=== PATIENT | female | born 1990 | race Caucasian/White ===

== ENCOUNTER 2018-11-03 20:18 | Emergency (ER) | payer OTHER ==
[2018-11-03 20:29] VITALS: TEMP 98.1; BMI 18.3
--- NOTE | 2018-11-03 20:52 | PDOC ---
Attending Attestation - Resident Resident Name: Mak Sommer - ED Attending Attestation I have performed the following: I have examined & evaluated the patient, The case was reviewed & discussed with the resident, I agree w/resident's findings & plan, Exceptions are as noted - HPI HPI: 11/03/18 20:51 this 27 yo female went to urgent care for chest pain and referred to the emergency dept.She dev anterior chest pain at 2 pm today 11/03/18 20:53 slender 27 yo female is seated on the gurney and has normal vital signs 11/03/18 21:02 - Physicial Exam PE: 11/04/18 00:[address] Cindy Perdue's physical exam 11/04/18 00:15 11/04/18 00:16 - Medical Decision Making 11/03/18 21:03 27-year-old female presents with chest pressure that started 2 PM today. She describes the pain as mid chest, nonradiating and not associated with any nausea or vomiting or diaphoresis and she states the pain is 7/10 -she denies any recent travel PMH migraines PSH none LMP 3 months ago,she has irregular menstrual cycles Social history: denies tobacco use Meds denies any prescription meds, no control family history: no history of early cardiac demise ekg nsr @ 63 bpm 11/03/18 23:32 her labs are unremarkable and her troponin is negative 11/04/18 00:14 cxr napd,normal cardiac silhouette pt's chest resolved imp atypical chest pain
[2018-11-03 21:01] VITALS: BP 113/78; PULSE 67
--- NOTE | 2018-11-03 21:05 | PDOC ---
History of Present Illness <JakeMonica Lita - Last Filed: 11/04/18 00:11> - History of Present Illness Initial Comments: 11/03/18 21:05 27 y/o F hx of migraines and depression presenting today with 7 hrs of chest pain. Pain started at around 2pm this afternoon while she was at home at rest. Pain is located sternally, waxes and wanes and is about 7/10 in severity. It is non-radiating and she denies any relieving or exacerbating factors. She went to urgent care where an dEKG was done and she was asked to come to Ed for further evaluation. Urgent care EKG showed " high lateral repolarization differences but no ST elevations". She took some aspirin at home prior to urgent care visit which did not relieve her pain. She denies any OCP use, hx of clots, recent travel, family hx of sudden cardiac , shortness of breath, diaphoresis, nausea, vomiting, fevers, chills, recent increase in strenous activity or heavy lifting. 11/03/18 21:12 <Mak Sommer - Last Filed: 11/04/18 00:29> - General Chief Complaint: Chest Pain Stated Complaint: CHEST PAIN Time Seen by Provider: 11/03/18 20:38 Past History <JakeMonica Lita - Last Filed: 11/04/18 00:11> - Past Medical History COPD: No - Immunization History Immunization Up to Date: Yes - Suicide/Smoking/Psychosocial Hx Smoking History: Never smoked Have you smoked in the past 12 months: No Hx Alcohol Use: No Drug/Substance Use Hx: No Substance Use Type: None <Mak Sommer - Last Filed: 11/04/18 00:29> - Past Medical History Allergies/Adverse Reactions: Allergies Allergy/AdvReac Type Severity Reaction Status Date / Time shellfish derived Allergy Mild Verified 11/03/18 20:26 Home Medications: Ambulatory Orders NK [No Known Home Medication] 11/03/18 Review of Systems - Review of Systems Constitutional: No: Chills, Fever HEENTM: No: Blurred Vision Respiratory: Yes: Cough (dry cough, non-productive) Cardiac (ROS): Yes: Symptoms Reported ABD/GI: No: Abdominal Distended, Diarrhea : No: Burning, Dysuria Musculoskeletal: No: Back Pain Integumentary: No: Bruising, Change in Color Neurological: No: Headache, Numbness <Mak Sommer - Last Filed: 11/04/18 00:29> *Physical Exam - Vital Signs Last Vital Signs Temp Pulse Resp BP Pulse Ox 98.1 F 67 16 113/78 100 11/03/18 20:26 11/03/18 20:56 11/03/18 20:56 11/03/18 20:56 11/03/18 20:56 <Monica Joseph - Last Filed: 11/04/18 00:11> - Vital Signs Last Vital Signs Temp Pulse Resp BP Pulse Ox 98.1 F 63 18 122/82 100 11/03/18 20:26 11/03/18 20:26 11/03/18 20:26 11/03/18 20:26 11/03/18 20:26 - Physical Exam General Appearance: Yes: Appropriately Dressed, Thin. No: Apparent Distress HEENT: positive: Normal Voice. negative: Scleral Icterus (R), Scleral Icterus ( L) Neck: positive: Trachea midline, Supple Respiratory/Chest: positive: Chest Tender (tenderness with palpation of chest at sternum), Lungs Clear, Normal Breath Sounds. negative: Respiratory Distress , Accessory Muscle Use, Labored Respiration Cardiovascular: positive: Regular Rhythm, Regular Rate, S1, S2. negative: Edema , JVD Vascular Pulses: Dorsalis-Pedis (R): 2+, Doralis-Pedis (L): 2+ Gastrointestinal/Abdominal: positive: Normal Bowel Sounds, Flat, Soft. negative : Tender, Pulsatile Mass Musculoskeletal: positive: Normal Inspection. negative: CVA Tenderness Extremity: positive: Normal Capillary Refill, Normal Inspection, Normal Range of Motion. negative: Pedal Edema Integumentary: positive: Normal Color, Dry, Warm Neurologic: positive: Fully Oriented, Alert, Normal Mood/Affect, Normal Response <Mak Sommer - Last Filed: 11/04/18 00:29> ED Treatment Course - LABORATORY CBC & Chemistry Diagram: 11/03/18 21:30 11/03/18 21:30 - ADDITIONAL ORDERS Additional order review: Laboratory Results 11/03/18 11/03/18 11/03/18 21:30 21:30 21:30 Sodium Cancelled 140 Potassium Cancelled 3.8 Chloride Cancelled 104 Carbon Dioxide Cancelled 28 Anion Gap Cancelled 8 BUN Cancelled 13.3 Creatinine Cancelled 0.7 Est GFR (CKD-EPI)AfAm Cancelled 139.57 Est GFR (CKD-EPI)NonAf Cancelled 120.42 Random Glucose Cancelled 79 Calcium Cancelled 9.1 Total Bilirubin Cancelled 0.2 AST Cancelled 10 L ALT Cancelled 14 Alkaline Phosphatase Cancelled 47 Creatine Kinase 46 Troponin I < 0.02 Total Protein Cancelled 6.8 Albumin Cancelled 4.0 Serum , Qual Negative 11/03/18 21:30 RBC 4.52 MCV 79.8 L MCHC 33.4 RDW 15.4 MPV 9.5 Neutrophils % 46.7 Lymphocytes % 43.7 H Monocytes % 7.6 Eosinophils % 1.3 Basophils % 0.7 <Monica Joseph - Last Filed: 11/04/18 00:11> - LABORATORY CBC & Chemistry Diagram: 11/03/18 21:30 11/03/18 21:30 <Mak Sommer - Last Filed: 11/04/18 00:29> Medical Decision Making - Medical Decision Making 11/03/18 21:13 27 y/o F hx of migraines and depression presenting today with 7 hrs of chest pain. cbc, cmp, cardiac profile, ekg, serum cxr pending serum results 11/03/18 22:48 EKG: normal sinus rhythm, normal EKG Trop <0.02 Serum negative CXR PA & Lateral ordered CXR : clear 11/04/18 00:28 <Mak Sommer - Last Filed: 11/04/18 00:29> *DC/Admit/Observation/Transfer <Monica Joseph - Last Filed: 11/04/18 00:11> <Mak Sommer - Last Filed: 11/04/18 00:29> Diagnosis at time of Disposition: Chest pain Qualifiers: Chest pain type: unspecified Qualified Code(s): R07.9 - Chest pain, unspecified - Discharge Dispostion Disposition: HOME Condition at time of disposition: Stable - Referrals Referrals: [facility] [place] [facility] [place] [Provider Group] - Patient Instructions Printed Discharge Instructions: DI for Atypical Chest Pain Additional Instructions: You were seen in the ED for chest pain. Your labs and other testing did not show signs of a heart attack HOME CARE INSTRUCTIONS: For the next few days, avoid physical activities that bring on chest pain. . Do not smoke and avoid drinking alcohol. Only take over- the-counter or prescription medicine for pain such as motrin or tylenol. We have provided a list of primary care doctors you can contact for follow up. Follow up with them next week. SEEK MEDICAL CARE IF: You think you are having problems from the medicine you are taking. Read your medicine instructions carefully. You develop chest pain does not go away, even after treatment. SEEK IMMEDIATE MEDICAL CARE IF: You have increased chest pain or pain that spreads to your arm, neck, jaw, back, or abdomen. You develop shortness of breath, an increasing cough, or you start coughing up blood. You have severe back or abdominal pain, feel nauseous, or vomit You develop severe weakness, fainting, or chills. You have a fever. THESE ARE EMERGENCIES - Do not drive yourself to the hospital.
[2018-11-03 22:10] LABS: BASO % 0.7 % (0-2.0); EOS % 1.3 % (0-4.5); HEMATOCRIT 36.1 % (32.4-45.2); LYMPH % 43.7 % (8-40); MCH 26.7 pg (25.7-33.7); MCHC 33.4 g/dl (32.0-36.0); MEAN CELL VOLUME 79.8 fl (80-96); MEAN PLT VOLUME 9.5 fl (7.5-11.1); MONO % 7.6 % (3.8-10.2); NEUT % 46.7 % (42.8-82.8); PLATELET COUNT 208 K/MM3 (134-434); RBC 4.52 M/mm3 (3.60-5.2); RDW 15.4 % (11.6-15.6); WHITE BLOOD COUNT 6.8 K/mm3 (4.0-10.0)
[2018-11-03 23:09] LABS: ALK PHOS 47 U/L (45-117); ANION GAP 8 MMOL/L (8-16); BILIRUBIN,TOTAL 0.2 mg/dL (0.2-1); BLOOD UREA NITROGEN 13.3 mg/dL (7-18); CALCIUM 9.1 mg/dL (8.5-10.1); CHLORIDE 104 mmol/L (98-107); CO2 28 mmol/L (21-32); CREATININE 0.7 mg/dL (0.55-1.3); GLUCOSE,RANDOM 79 mg/dL (74-106); POTASSIUM 3.8 mmol/L (3.5-5.1); SGOT/AST 10 U/L (15-37); SGPT/ALT 14 U/L (13-61); SODIUM 140 mmol/L (136-145); TOT PROT 6.8 g/dl (6.4-8.2)
--- NOTE | 2018-11-05 07:11 | EKG ---
Test Reason : Blood Pressure : / mmHG Vent. Rate : 061 BPM Atrial Rate : 061 BPM P-R Int : 136 ms QRS Dur : 088 ms QT Int : 422 ms P-R-T Axes : 044 079 058 degrees QTc Int : 424 ms NORMAL SINUS RHYTHM NORMAL ECG WHEN COMPARED WITH ECG OF 03-NOV-2018 20:23, NO SIGNIFICANT CHANGE WAS FOUND Confirmed by TAMMY FERREIRA MD ([id number]) on 11/05/2018 7:11:15 AM Referred By: Confirmed By:TAMMY FERREIRA MD
--- NOTE | 2018-11-05 07:12 | EKG ---
Test Reason : Blood Pressure : / mmHG Vent. Rate : 063 BPM Atrial Rate : 063 BPM P-R Int : 130 ms QRS Dur : 088 ms QT Int : 402 ms P-R-T Axes : 043 079 066 degrees QTc Int : 411 ms NORMAL SINUS RHYTHM WITH SINUS ARRHYTHMIA NORMAL ECG WHEN COMPARED WITH ECG OF 22-MAY-2013 18:03, NO SIGNIFICANT CHANGE WAS FOUND Confirmed by TAMMY FERREIRA MD ([id number]) on 11/05/2018 7:11:33 AM Referred By: Confirmed By:TAMMY FERREIRA MD
== END 2018-11-04 00:28 | disposition home or self-care (01) ==
LOC: JER 20:18
DX: R07.89 Other chest pain (principal); G43.909 Migraine, unspecified, not intractable, without status migrainosus; F32.9 Major depressive disorder, single episode, unspecified
CPT/HCPCS: 36415; 71046-TC-FY; 80053; 82550; 84484; 84703; 85025; 93005; 93010; 99284-25

== ENCOUNTER 2019-09-15 13:51 | Emergency (ER) | payer OTHER ==
--- NOTE | 2019-09-15 13:54 | PDOC ---
Rapid Medical Evaluation Time Seen by Provider: 09/15/19 13:52 Medical Evaluation: Allergies Allergy/AdvReac Type Severity Reaction Status Date / Time shellfish derived Allergy Mild Verified 11/03/18 20:26 09/15/19 13:52 I have performed a brief in-person evaluation of this patient. CC: syncope after shower with subsequent head trauma. Seen at and found to have BGM-30. PE: No focal findings. Orders: labs, ekg, urine, CT Patient will proceed to ED for further evaluation. Discharge Disposition - Diagnosis Syncope - Referrals - Patient Instructions - Post Discharge Activity
[2019-09-15 14:15] VITALS: TEMP 98.2; BMI 21.4
--- NOTE | 2019-09-15 14:15 | PDOC ---
History of Present Illness - General Chief Complaint: Lightheaded Stated Complaint: DIZZINESS Time Seen by Provider: 09/15/19 13:52 History Source: Patient, Old Records Exam Limitations: No Limitations - History of Present Illness Initial Comments: 09/15/19 14:15 Gabrielle Owens is an otherwise healthy 28F presenting with syncope and hypoglycemia. Patient was otherwise healthy today, took a hot shower 4 hours RAIL BONDER and felt dizzy after, sat on toilet, called for help, then syncopized to the floor. Boyfriend at bedside, found her on the floor, was glassy eyed for about a minute but was back to normal 5 minutes later. Went to Urgent Care, BGM 30, referred to [facility] ED for further care. Per boyfriend patient was back to normal mental status at this time. Patient denies prior syncope, denies FH cardiac disease, denies chest pain, palpitations, SOB, dizziness, weakness, numbness, abd pain, urinary sx, diarrhea, fever, chills. Currently complains of some mild neck soreness to her right neck, no nausea, no vomiting, tolerating PO. No medications taken, no PSH. Denies alcohol/drug/tobacco. Per boyfriend, patient barely eats food, picks at meals. Patient denies any difficulty swallowing, aversion to eating, bulimia, strenuous exercise, or anxiety about weight gain, simply reports she does not feel hungry. LMP 3 weeks ago, denies . Past History - Medical History Allergies/Adverse Reactions: Allergies Allergy/AdvReac Type Severity Reaction Status Date / Time shellfish derived Allergy Mild Verified 09/15/19 14:15 Home Medications: Ambulatory Orders NK [No Known Home Medication] 11/03/18 COPD: No - Immunization History Immunization Up to Date: Yes - Psycho-Social/Smoking History Smoking History: Never smoked Have you smoked in the past 12 months: No - Substance Abuse Hx (Audit-C & DAST Scrn) In the last yr the pt used illegal drug/Rx for NonMed reason: No Score: Yes response is considered Positive: 0 Screen Result (Positive result requires Nsg. DAST-10): Negative Review of Systems - Review of Systems Able to Perform ROS?: Yes Constitutional: No: Symptoms Reported HEENTM: No: Symptoms Reported Respiratory: No: Symptoms reported Cardiac (ROS): Yes: Syncope. No: Chest Pain, Edema, Irregular Heart Rate, Lightheadedness, Palpitations ABD/GI: No: Constipated, Diarrhea, Nausea, Poor Appetite, Poor Fluid Intake, Vomiting : No: Symptoms Reported Musculoskeletal: Yes: Neck Pain Integumentary: No: Symptoms Reported Neurological: No: Symptoms reported Endocrine: No: Symptoms Reported Hematologic/Lymphatic: No: Symptoms Reported All Other Systems: Reviewed and Negative *Physical Exam - Vital Signs Last Vital Signs Temp Pulse Resp BP Pulse Ox 98.2 F 79 16 93/56 L 98 09/15/19 13:55 09/15/19 13:55 09/15/19 13:55 09/15/19 13:55 09/15/19 13:55 - Physical Exam General Appearance: Yes: Nourished, Appropriately Dressed, Thin, Other (alert, acting normally, in NAD, not cachectic but very thin). No: Apparent Distress HEENT: positive: EOMI, PRITI, Normal Voice, Pharynx Normal. negative: Pale Conjunctivae, Scleral Icterus (R), Scleral Icterus (L), Pharyngeal Erythema, Tonsillar Exudate, Tonsillar Erythema Neck: positive: Trachea midline, Normal Thyroid, Supple, Tender lateral (sore to palpation over SCM). negative: Tender, Rigid, Decreased range of motion, Lymphadenopathy (R), Lymphadenopathy (L), Rigidity Respiratory/Chest: positive: Lungs Clear, Normal Breath Sounds. negative: Chest Tender, Respiratory Distress, Accessory Muscle Use, Crackles, Rales, Rhonchi, Stridor, Wheezing Cardiovascular: positive: Regular Rhythm, Regular Rate. negative: Murmur Gastrointestinal/Abdominal: positive: Normal Bowel Sounds, Flat, Soft. negative: Tender, Organomegaly, Guarding, Rebound Musculoskeletal: positive: Normal Inspection. negative: CVA Tenderness, CVA Tenderness (R), CVA Tenderness (L), Decreased Range of Motion, Vertebral Tenderness Extremity: positive: Normal Capillary Refill, Normal Inspection, Normal Range of Motion, Pelvis Stable. negative: Tender, Pedal Edema, Swelling, Calf Tenderness Integumentary: positive: Normal Color, Dry, Warm Neurologic: positive: awning installer II-XII NML intact, Fully Oriented (self, birthday, year, President, 6+3, location), Alert, Normal Mood/Affect, Normal Response, Motor Strength 5/5, Finger to Nose (normal), Other (gait normal forwards and backwards). negative: Sensory Deficit ED Treatment Course - LABORATORY CBC & Chemistry Diagram: 09/15/19 14:35 09/15/19 14:35 Medical Decision Making - Medical Decision Making 09/15/19 15:52 Patient has no PMH but presents with sudden onset syncope from sitting after shower. BGM 30 at urgent care, 60 in [facility], was not given anything prior to arrival, was apparently alert and oriented for the last few hours. Given 2x apple juice to drink. Patient denies any PMH or AC, no neuro deficits, neck non- tender, no N/V, otherwise healthy, CT head not indicated by [place] CT head rules. Evaluating for undifferentiated hypoglycemia with CMP/CBC/TSH/serum preg/UA/UC/ECG/CXR. Possible orthostatic hypotension, but bedside orthostatic VS negative without IVF. No other sx at this time. ECG shows NSR with sinus arrhythmia, HR 66, QTc 431, and no YUKI/D or TWI. Labs notable for: - CMP WNL - CBC WNL - TSH WNL - preg negative Repeat BGM 98, back to normal. Physical exam remains normal, mental status normal. Pending CXR. 09/15/19 17:17 CXR appears normal. Patient educated on importance of eating a balanced diet and staying hydrated. F/u at [place] given. Stable for d/c home. Discharge - Discharge Information Problems reviewed: Yes Clinical Impression/Diagnosis: Syncope Qualifiers: Syncope type: unspecified Qualified Code(s): R55 - Syncope and collapse Condition: Improved Disposition: HOME - Follow up/Referral Referrals: [facility] [place] [facility] [place] [Provider Group] - Patient Discharge Instructions Patient Printed Discharge Instructions: DI for Syncope in Adults (Fainting), Getting to the Heart of a Healthful Diet Additional Instructions: Today you were evaluated for passing out. Your labs do not show any problems. Your episode of fainting might be caused by dehydration. You have to eat enough to stay healthy or else this might pass out again. Please eat and drink enough each day. If you cannot, you need to see a primary care doctor for further care, and a referral has been given. If you experience worsening neck pain, dizziness, diarrhea, weakness, vision changes, or any other new or concerning symptoms, please return to the emergency room. - Post Discharge Activity
[2019-09-15 14:50] LABS: BASO % 0.4 % (0-2.0); HEMATOCRIT 39.1 % (32.4-45.2); HEMOGLOBIN 12.6 GM/dL (10.7-15.3); LYMPH % 13.6 % (8-40); MCH 26.1 pg (25.7-33.7); MCHC 32.2 g/dl (32.0-36.0); MEAN PLT VOLUME 9.9 fl (7.5-11.1); MONO % 4.5 % (3.8-10.2); NEUT % 81.5 % (42.8-82.8); PLATELET COUNT 249 K/MM3 (134-434); RBC 4.83 M/mm3 (3.60-5.2); RDW 15.4 % (11.6-15.6); WHITE BLOOD COUNT 11.7 K/mm3 (4.0-10.0)
[2019-09-15 15:01] LABS: URINE APPEARANCE CLEAR; URINE BILIRUBIN NEGATIVE (NEGATIVE); URINE COLOR YELLOW; URINE GLUCOSE (UA) NEGATIVE (NEGATIVE); URINE KETONE 3+ (NEGATIVE); URINE LEUK ESTERASE NEGATIVE (NEGATIVE); URINE NITRITE NEGATIVE (NEGATIVE); URINE PROTEIN NEGATIVE (NEGATIVE); URINE UROBILINOGEN 0.2 mg/dL (0.2-1.0)
[2019-09-15 15:03] LABS: HCG,QUALITATIVE URINE Negative
[2019-09-15 15:37] VITALS: BP 90/58; PULSE 62
[2019-09-15 15:40] LABS: ALBUMIN 4.2 g/dl (3.4-5.0); BILIRUBIN,TOTAL 0.5 mg/dL (0.2-1); BLOOD UREA NITROGEN 10.8 mg/dL (7-18); CALCIUM 9.3 mg/dL (8.5-10.1); CREATININE 0.7 mg/dL (0.55-1.3); POTASSIUM 3.8 mmol/L (3.5-5.1); TOT PROT 7.6 g/dl (6.4-8.2)
--- NOTE | 2019-09-15 15:44 | PDOC ---
Documentation entered by Ayleen Morales SCRIBE, acting as scribe for Connor Head MD. Connor Head MD: This documentation has been prepared by the Carmen torres Xhesika, SCRIBE, under my direction and personally reviewed by me in its entirety. I confirm that the documentation accurately reflects all work, treatment, procedures, and medical decision making performed by me. Attending Attestation - Resident Resident Name: Garrick Varma - ED Attending Attestation I have performed the following: I have examined & evaluated the patient, The case was reviewed & discussed with the resident, I agree w/resident's findings & plan, Exceptions are as noted - HPI HPI: 09/15/19 14:17 The patient is a 28y/o F with no PMH who presents to the ED for syncopal episode at 11am. Pt states she got out the shower, sat on the toilet and when she got up she felt dizzy, passed out and fell to the floor. Per boyfriend, he found the patient on the bathroom floor. Pt went to Urgent Care, where she had a fingerstick that reportedly read "30", and she was advised to come to the ED for further evaluation. Pt was awake and alert at the time. Pt does note that she generally has poor PO intake due to disinterest in food. Pt denies any complaints at this time. Denies CP/SOB/palpitations/lightheadedness. Allergies: NKDA - Physicial Exam PE: 09/15/19 15:52 "GENERAL: Awake, alert, and fully oriented, in no acute distress. HEAD: No signs of trauma EYES: PERRLA, EOMI, sclera anicteric, conjunctiva clear ENT: Auricles normal inspection, hearing grossly normal, nares patent, oropharynx clear without exudates. Moist mucosa NECK: Nontender, no stepoffs, Normal ROM, supple, no lymphadenopathy, JVD, or masses LUNGS: Breath sounds equal, clear to auscultation bilaterally. No wheezes, and no crackles HEART: Regular rate and rhythm, normal S1 and S2, no murmurs, rubs or gallops ABDOMEN: Soft, nontender, normoactive bowel sounds. No guarding, no rebound. No masses EXTREMITIES: Normal range of motion, no edema. No clubbing or cyanosis. No cords, erythema, or tenderness NEUROLOGICAL: Cranial nerves II through XII intact. 5/5 strength and sensation in all extremities, Normal speech, normal gait, normal cerebellar function SKIN: Warm, Dry, normal turgor, no rashes or lesions noted. - Medical Decision Making 09/15/19 15:54 28 F with syncopal episode. Possibly vasovagal as pt was in the bathroom. Pt with no EKG evidence of arrhythmia. Pt noted to have fingerstick of 30 at urgent care, but this is unlikely as pt was awake and alert the entire time without symptoms. Fingerstick in ED is 60. Pt awake and alert. No indication for CT imaging per [place] head/c-spine rules. - Labs - PO challenge - Repeat fingerstick 09/15/19 16:05 Labs wnl Pt eating chips and drinking juice Repeat fingerstick 90s Pt is well appearing, with normal vitals. Clinically stable for DC at this time. I discussed the physical exam findings, ancillary test results and final di agnoses with the patient. I answered all of the patient's questions. The patient was satisfied with the care received and felt comfortable with the discharge plan and treatment plan. The patient agrees to follow up with the primary care physician within 24-72 hours. Discharge - Discharge Information Problems reviewed: Yes Clinical Impression/Diagnosis: Syncope Condition: Improved Disposition: HOME - Follow up/Referral Referrals: [facility] [place] [facility] [place] [Provider Group] - Patient Discharge Instructions Patient Printed Discharge Instructions: DI for Syncope in Adults (Fainting), Getting to the Heart of a Healthful Diet Additional Instructions: Today you were evaluated for passing out. Your labs do not show any problems. Your episode of fainting might be caused by dehydration. You have to eat enough to stay healthy or else this might pass out again. Please eat and drink enough each day. If you cannot, you need to see a primary care doctor for further care, and a referral has been given. If you experience worsening neck pain, dizziness, diarrhea, weakness, vision changes, or any other new or concerning symptoms, please return to the emergency room. - Post Discharge Activity
--- NOTE | 2019-09-16 09:58 | EKG ---
Test Reason : Blood Pressure : / mmHG Vent. Rate : 066 BPM Atrial Rate : 066 BPM P-R Int : 120 ms QRS Dur : 094 ms QT Int : 412 ms P-R-T Axes : 046 080 064 degrees QTc Int : 431 ms NORMAL SINUS RHYTHM WITH SINUS ARRHYTHMIA NORMAL ECG WHEN COMPARED WITH ECG OF 03-NOV-2018 21:30, NO SIGNIFICANT CHANGE WAS FOUND Confirmed by Leandro Kwong ([id number]) on 09/16/2019 9:57:42 AM Referred By: Confirmed By:Leandro Kwong
== END 2019-09-15 16:50 | disposition home or self-care (01) ==
LOC: JER 13:51
DX: R55 Syncope and collapse (principal)
CPT/HCPCS: 36415; 71046-TC-FY; 80053; 81003; 82962; 84443; 84703; 85025; 87086; 93005; 93010; 99285-25

== ENCOUNTER 2020-02-17 17:15 | Emergency (ER) | payer OTHER ==
[2020-02-17 17:36] VITALS: BP 113/78; PULSE 78; TEMP 98.1; BMI 19.8
[2020-02-17] MEDS ORDERED: SODIUM CHLORIDE 1,000 ML IV STA (19:41)
[2020-02-17] MEDS ORDERED: ACETAMINOPHEN 325 MG TABLET (FP) PO ONE (19:41)
[2020-02-17 20:07] LABS: HCG,QUALITATIVE URINE Positive
[2020-02-17 20:10] LABS: EPI CELLS 27 /uL (0-25.1); HYALINE CASTS 2 /uL (0-3.1); PH,URINE 5.5 (5.0-8.0); URINE APPEARANCE Error; URINE BACTERIA 1808 /uL (0-1359); URINE BILIRUBIN NEGATIVE (NEGATIVE); URINE COLOR YELLOW; URINE GLUCOSE (UA) NEGATIVE (NEGATIVE); URINE KETONE NEGATIVE (NEGATIVE); URINE LEUK ESTERASE TRACE (NEGATIVE); URINE NITRITE NEGATIVE (NEGATIVE); URINE PROTEIN NEGATIVE (NEGATIVE); URINE UROBILINOGEN 0.2 mg/dL (0.2-1.0); URINE WBC 77 /uL (0-25.8)
[2020-02-17 20:17] LABS: BASO % 0.8 % (0-2.0); EOS % 0.6 % (0-4.5); HEMATOCRIT 36.1 % (32.4-45.2); HEMOGLOBIN 12.2 GM/dL (10.7-15.3); MCH 26.7 pg (25.7-33.7); MCHC 33.7 g/dl (32.0-36.0); MEAN CELL VOLUME 79.3 fl (80-96); MEAN PLT VOLUME 10.6 fl (7.5-11.1); MONO % 6.9 % (3.8-10.2); NEUT % 68.7 % (42.8-82.8); PLATELET COUNT 264 K/MM3 (134-434); RBC 4.55 M/mm3 (3.60-5.2); RDW 15.8 % (11.6-15.6); WHITE BLOOD COUNT 11.5 K/mm3 (4.0-10.0)
[2020-02-17 20:26] LABS: INR 0.97 (0.83-1.09); PROTHROMBIN TIME (PATIENT) 11.9 SEC (9.7-13.0)
[2020-02-17 20:29] LABS: ACTIVATED PTT 28.2 SECONDS (25.2-36.5)
[2020-02-17 20:33] LABS: POTASSIUM 3.6 mmol/L (3.5-5.1)
[2020-02-17 20:35] LABS: ALBUMIN 4.1 g/dl (3.4-5.0); CALCIUM 9.3 mg/dL (8.5-10.1)
[2020-02-17 20:36] LABS: BLOOD UREA NITROGEN 10.8 mg/dL (7-18)
[2020-02-17 20:39] LABS: CREATININE 0.5 mg/dL (0.55-1.3)
[2020-02-17 20:41] LABS: BILIRUBIN,TOTAL 0.1 mg/dL (0.2-1); TOT PROT 7.9 g/dl (6.4-8.2)
[2020-02-17] MEDS ORDERED: ACETAMINOPHEN 325 MG TABLET (FP) ONE (20:51)
[2020-02-17 21:57] LABS: URINE RBC 30.4 /uL (0-23.9)
== END 2020-02-17 22:37 | disposition home or self-care (01) ==
LOC: JER 17:15
DX: O23.41 Unspecified infection of urinary tract in pregnancy, first trimester (principal); B37.9 Candidiasis, unspecified; Z3A.01 Less than 8 weeks gestation of pregnancy
CPT/HCPCS: 36415; 76801-TC; 80053; 81003; 84702; 84703; 85025; 85610; 85730; 86850; 86900; 86901; 87086; 99285-25

== ENCOUNTER 2021-06-28 19:17 | Emergency (ER) | payer OTHER ==
[2021-06-28 19:49] VITALS: BP 112/73; PULSE 64; TEMP 98.3; BMI 21.7
== END 2021-06-28 23:53 | disposition home or self-care (01) ==
LOC: JER 19:17
DX: R07.9 Chest pain, unspecified (principal)
CPT/HCPCS: 71046-TC-FY; 93005; 93010; 99284-25

== ENCOUNTER 2022-05-17 21:05 | Emergency (ER) | payer OTHER ==
[2022-05-17 21:10] VITALS: BP 108/68; PULSE 80; RESP 17; TEMP 98; BMI 22.6
[2022-05-18] MEDS ORDERED: ACETAMINOPHEN 325 MG TABLET (FP) PO ONE (00:41)
[2022-05-18] MEDS ORDERED: ACETAMINOPHEN 325 MG TABLET (FP) ONE (00:56)
== END 2022-05-18 01:52 | disposition home or self-care (01) ==
LOC: JER 21:05 → JERFT 21:05 → JER 05-18 01:52
DX: R07.89 Other chest pain (principal)
CPT/HCPCS: 71045-TC-FY; 93005; 93010; 99284-25

== ENCOUNTER 2023-09-01 16:15 | Emergency (ER) | payer OTHER ==
[2023-09-01 16:26] VITALS: BP 112/71; PULSE 77; RESP 18; TEMP 98.8; BMI 25.1
[2023-09-01 17:35] LABS: BASO % 0.4 % (0-2.0); HEMATOCRIT 37.5 % (32.4-45.2); HEMOGLOBIN 12.7 GM/dL (10.7-15.3); LYMPH % 27.8 % (8-40); MCH 26.2 pg (25.7-33.7); MEAN PLT VOLUME 9.2 fl (7.5-11.1); MONO % 6.5 % (3.8-10.2); NEUT % 64.3 % (42.8-82.8); PLATELET COUNT 283 10^3/uL (134-434); RBC 4.87 M/mm3 (3.60-5.2); WHITE BLOOD COUNT 8.9 K/mm3 (4.0-10.0)
[2023-09-01 17:52] LABS: POTASSIUM 4.1 mmol/L (3.5-5.1)
[2023-09-01 17:54] LABS: CALCIUM 9.1 mg/dL (8.5-10.1)
[2023-09-01 17:55] LABS: ALBUMIN 3.9 g/dl (3.4-5.0)
[2023-09-01 17:58] LABS: CREATININE 0.7 mg/dL (0.55-1.3)
[2023-09-01 18:00] LABS: BILIRUBIN,TOTAL 0.3 mg/dL (0.2-1); TOT PROT 7.8 g/dl (6.4-8.2)
== END 2023-09-01 18:42 | disposition home or self-care (01) ==
LOC: JER 16:15
DX: R07.89 Other chest pain (principal)
CPT/HCPCS: 36415; 71046-TC-FY; 80053; 84484; 85025; 93005; 93010; 99284-25

== ENCOUNTER 2023-11-05 14:37 | Emergency (ER) | payer OTHER ==
[2023-11-05 14:42] VITALS: BP 113/72; PULSE 78; RESP 16; TEMP 97.5; BMI 25.3
[2023-11-05] MEDS ORDERED: LIDOCAINE 4% PATCH TP ONE (16:11)
[2023-11-05] MEDS: LIDOCAINE 5% TOPICAL PATCH TP ONE (16:17)
[2023-11-05] MEDS ORDERED: LIDOCAINE PATCH REMOVAL MC SCH (22:00)
== END 2023-11-05 16:50 | disposition home or self-care (01) ==
LOC: JER 14:37
DX: M79.10 Myalgia, unspecified site (principal); R20.2 Paresthesia of skin
CPT/HCPCS: 93005; 93010; 99283-25

== ENCOUNTER 2023-11-19 10:39 | Emergency (ER) | payer OTHER ==
[2023-11-19 11:11] VITALS: BP 101/68; PULSE 78; RESP 18; TEMP 98.4; BMI 26.2
== END 2023-11-19 13:12 | disposition home or self-care (01) ==
LOC: JER 10:39 → JERFT 10:39
DX: R06.02 Shortness of breath (principal)
CPT/HCPCS: 71046-TC-FY; 84703; 93005; 93010; 99285-25